=== PATIENT | female | born 1965 | race Caucasian/White ===

== ENCOUNTER → 2016-12-25 | Outpatient (CLI) | payer OTHER ==
--- NOTE | 2016-12-25 13:49 | US ---
Ultrasound Pelvis Complete (Transabdominal and Endovaginal) Including Duplex/Doppler Imaging History: Lower abdominal and pelvic pain and pressure. Bloating. Technique: Transabdominal and endovaginal ultrasound images were obtained. Endovaginal images obtain ed for better evaluation of the uterine myometrium and adnexa. Duplex/Doppler imaging of adnexa. Findings: Uterus measures 9.2 x 3.3 x 4.6 cm. Endometrial thickness is 8 mm. In the posterior left m idbody of the uterus there is a submucosal 1.1 x 0.7 x 0.7 cm leiomyoma. In the fundus there is a brittnee ypoid lesion measuring 6 x 5 x 3 mm. In the posterior fundal region there is an intramural benign-monica earing cyst measuring 5 x 4 mm. Right ovary measures 1.5 x 1.3 x 0.8 cm. Left ovary measures 1.7 x 1.3 x 0.8 cm. No adnexal masses. No significant free fluid in the pelvis. Color Doppler flow to both ovaries without torsion. Impression: 1. Posterior left midbody submucosal leiomyoma of 1.1 x 0.7 x 0.7 cm. 2. Fundal polypoid mass measuring 6 mm. Recommend endometrial biopsy. 3. No adnexal masses, ovarian torsion, or ascites.
== END ==
LOC: BMCIMAGING 11:42
PROVIDERS: ATTEND Internal Medicine
DX: D25.0 Submucous leiomyoma of uterus (principal); N84.0 Polyp of corpus uteri

== ENCOUNTER 2016-12-31 11:01 | Day surgery (SDC) | payer OTHER ==
[2016-12-31] MEDS ORDERED: LIDOCAINE 1% 5 ML SDV ONE (11:41)
[2016-12-31] MEDS ORDERED: SILVER NITRATE APPLICATOR 1 APPL TP ONE (11:55)
[2016-12-31 12:07] LABS: % IMMATURE GRANULYOCYTES 0.4 % (0.0-1.1); ABSOLUTE IMMATURE GRANULOCYTES 0.02 10^3/uL (0.00-0.10); ADD DIFF? NO; ADD MORPH? NO; ADD SCAN? NO; ATYPICAL LYMPHOCYTE FLAG 10 (0-99); FRAGMENT RBC FLAG 0 (0-99); HEMATOCRIT 39.5 % (38.0-47.0); HEMOGLOBIN 13.5 g/dL (12.6-16.3); LEFT SHIFT FLG 0 (0-99); LIPEMIA HEMOLYSIS FLAG 90 (0-99); MEAN CELL HEMOGLOBIN 31.8 pg (27.9-34.1); MEAN CELL HEMOGLOBIN CONCENTR. 34.2 g/dL (32.4-36.7); MEAN CELL VOLUME 93.2 fL (81.5-99.8); MEAN PLATELET VOLUME 10.8 fL (8.7-11.7); PLATELET CLUMPS FLAG 0 (0-99); PLATELET COUNT 255 10^3/uL (150-400); RED BLOOD CELL COUNT 4.24 10^6/uL (4.18-5.33)
[2016-12-31] MEDS ORDERED: MIDAZOLAM 2 MG/2 ML VIAL ONE (12:30)
[2016-12-31] MEDS ORDERED: LIDOCAINE 1% 30 ML SDV ONE (12:36)
[2016-12-31] MEDS ORDERED: LIDOCAINE 2% 5 ML SDV ONE (12:42)
[2016-12-31] MEDS ORDERED: PROPOFOL 200 MG/20 ML VIAL ONE ×2 (12:42)
[2016-12-31] MEDS ORDERED: fentaNYL 100 MCG/2 ML INJ ONE (12:42)
[2016-12-31] MEDS ORDERED: ONDANSETRON 4 MG/2 ML VIAL ONE (13:14)
[2016-12-31] MEDS ORDERED: KETOROLAC 30 MG/1 ML SDV ONE (13:14)
[2016-12-31] MEDS ORDERED: DEXAMETHASONE 4 MG/ML VIAL ONE ×2 (13:14)
--- NOTE | 2016-12-31 13:30 | SUROPNOTE ---
[facility] Operative Report - Surgery Oxygen Tank Filler Procedure Note 12/31/16 Procedure: Hysteroscopy, dilation and curettage Preop diagnosis: Endometrial polyp Postop diagnosis: Same Surgeon: Lavonne Truong Anesthesiologist: Eric Mann Anesthesia: General with LMA Findings: Small midline uterus. Cervical stenosis. Small polyp at left cornua, otherwise normal intrauterine cavity with atrophic appearing endometrium. Specimen: Uterine polyp and curettings Fluids: 1000 ml crystalloid Fluid deficit: < 400 ml crystalloid EBL: Minimal UOP: 100 ml Outcome: Stable, to PACU Indications: Pt is a 51 yo G0 with finding of an endometrial polyp on US that was performed for abdominal bloating. She desires to proceed with hysteroscopy, D&C for definitive management. Details of procedure: Pt was brought to the operating room and the correct pt and procedure were confirmed. General anesthesia was induced. She was prepped and draped in the normal sterile fashion in dorsal lithotomy with myah stirrups. The bladder was drained by in and out catheter. The speculum was placed. A single toothed tenaculum was placed on the anterior lip of the cervix. A paracervical block was performed with 10 ml 1% lidocaine. The external cervical os was noted to be pinpoint in size. An os finder was used to find the tract. The cervix was then sequentially dilated from 1.5 mm to 7 mm using hegar dilators. The 5 mm hysteroscope was introduced with normal saline as a medium with the above findings. The 5 mm truclear incisor blade was inserted and the polyp was completed removed. The rest of the cavity was completely normal as noted above. The hysteroscope was removed and a sharp curettage was performed. Scant tissue was returned. All instruments were removed and hemostasis was noted. The patient was awakened and brought to the recovery room in stable condition. Lavonne Truong MD
[2016-12-31] MEDS ORDERED: LR 1,000 ML IV ONE (14:30)
[2016-12-31] MEDS ORDERED: HYDROCODONE/APAP 5/325 TAB PO ONE (14:30)
== END 2016-12-31 15:25 | disposition home or self-care (01) ==
LOC: FSGY 11:01
PROVIDERS: ATTEND Obstetrics & Gynecology
PROC: 0UDB8ZX Extraction of Endometrium, Via Natural or Artificial Opening Endoscopic, Diagnostic (ICD-10-PCS; principal; 2016-12-31 12:30)
DX: N84.0 Polyp of corpus uteri (principal)
CPT/HCPCS: 58558; C1782; J1100; J1885; J2250; J2405; J2704; J3010

== ENCOUNTER → 2017-05-03 | Outpatient (CLI) | payer OTHER | LOC: FIMAGING 07:44 | PROVIDERS: ATTEND Internal Medicine | DX: Z12.31 Encounter for screening mammogram for malignant neoplasm of breast (principal) | CPT/HCPCS: G0202 ==

== ENCOUNTER → 2018-05-05 | Outpatient (CLI) | payer OTHER | LOC: FIMAGING 08:34 | PROVIDERS: ATTEND Internal Medicine | DX: Z12.31 Encounter for screening mammogram for malignant neoplasm of breast (principal); Z80.3 Family history of malignant neoplasm of breast ==

== ENCOUNTER → 2019-05-12 | Outpatient (CLI) | payer OTHER | LOC: FIMAGING 07:19 ==